=== PATIENT | female | born 1970 | race Caucasian/White ===

== ENCOUNTER 2016-11-18 23:27 | Day surgery (SDC) | payer OTHER ==
[2016-11-19] MEDS ORDERED: Ondansetron INJ* 2 MG/ML VIAL IV ONE (00:19)
[2016-11-19] MEDS ORDERED: NS 0.9% 1000 ML* 3,000 ML IV ONE (00:19)
[2016-11-19] MEDS ORDERED: Morphine INJ* 4 MG/ML 1 ML CARPUJECT IV ONE (00:19)
[2016-11-19] MEDS ORDERED: HYDROmorphone INJ* 1 MG/ML CARPUJECT SYRINGE IV ONE (00:43)
[2016-11-19 00:55] LABS: Hematocrit 42 % (35-47); Hemoglobin 14.3 g/dl (12.0-16.0); Mean Corpuscular HGB Conc 34 g/dl (31-36); Mean Corpuscular Hemoglobin 30 pg (27-31); Mean Corpuscular Volume 88 fL (80-97); Mean Platelet Volume 6 um3 (7.4-10.4); Red Blood Count 4.75 10^6/ul (4.0-5.4); Red Cell Distribution Width 13 % (10.5-15); White Blood Count 12.9 10^3/ul (3.5-10.8)
[2016-11-19 00:58] LABS: Urine Bilirubin Negative (Negative); Urine Glucose Negative (Negative); Urine Nitrite Negative (Negative)
[2016-11-19 01:08] LABS: ALT 31 U/L (7-52); AST 30 U/L (13-39); Albumin 4.3 g/dL (3.2-5.2); Alkaline Phosphatase 76 U/L (34-104); Anion Gap 9 mmol/L (2-11); BUN/Creatinine Ratio 15.6 (8-20); Blood Urea Nitrogen 12 mg/dL (6-24); C Reactive Protein 3.93 mg/L (< 5.00); CO2 Carbon Dioxide 25 mmol/L (22-32); Calcium 9.7 mg/dL (8.6-10.3); Chloride 100 mmol/L (101-111); EGFR African American 103.8 (>60); EGFR Non-African American 80.7 (>60); Glucose 118 mg/dL (70-100); Lipase 23 U/L (11.0-82.0); Potassium 3.4 mmol/L (3.5-5.0); Sodium 134 mmol/L (133-145); Total Protein 7.3 g/dL (6.4-8.9)
[2016-11-19] MEDS ORDERED: Iohexol 300* (CONTRAST) 10 ML SDV IV ONE (01:27)
[2016-11-19] MEDS ORDERED: NS 0.9% 1000 ML* 1,000 ML IV ONE (04:16)
--- NOTE | 2016-11-19 04:17 | ED ---
Ray Huber Adam, scribed for Juan Antonio Hernandez MD on 11/19/16 at 0024 . Abdominal Pain/Female - HPI Summary HPI Summary: Pt is a 46 year old female presenting with abdominal pain that set on at 17:00 and has been growing worse. It is located diffusely around the umbilicus and it has been sharp and constant. Pt also c/o vomiting. She denies chills. No Hx of abdominal surgeries. - History of Current Complaint Chief Complaint: EDAbdPain Stated Complaint: ABD PAIN Time Seen by Provider: 11/19/16 00:00 Hx Obtained From: Patient Hx Last Menstrual Period: 05/12/14 Onset/Duration: Sudden Onset, Lasting Hours, Still Present Timing: Constant Severity Initially: Mild Severity Currently: Moderate Pain Intensity: 8 Pain Scale Used: 0-10 Numeric Location: Diffuse, Umbilical Radiates: No Character: Sharp Aggravating Factor(s): Nothing Alleviating Factor(s): Nothing Associated Signs and Symptoms: Positive: Vomiting Allergies/Adverse Reactions: Allergies Allergy/AdvReac Type Severity Reaction Status Date / Time Penicillins Allergy Hives Verified 06/13/15 11:40 zpack Allergy Hives Uncoded 06/13/15 11:40 PMH/Surg Hx/FS Hx/Imm Hx - Cancer History Hx Chemotherapy: No Hx Radiation Therapy: No Infectious Disease History: No Infectious Disease History: Denies: Traveled Outside the [place] in Last 30 Days - Family History Known Family History: Positive: Other - Negative breast cancer - Social History Occupation: Employed Full-time Lives: Alone Alcohol Use: Weekly Alcohol Amount: 3 x a week Hx Substance Use: No Substance Use Type: Reports: None Hx Tobacco Use: No Smoking Status (MU): Never Smoked Tobacco Have You Smoked in the Last Year: No Review of Systems Negative: Chills Positive: Abdominal Pain, Vomiting All Other Systems Reviewed And Are Negative: Yes Physical Exam Triage Information Reviewed: Yes Vital Signs On Initial Exam: Initial Vitals Temp Pulse Resp BP Pulse Ox 97.5 F 68 16 145/93 99 11/18/16 23:35 11/18/16 23:35 11/18/16 23:35 11/18/16 23:35 11/18/16 23:35 Vital Signs Reviewed: Yes Appearance: Positive: Pain Distress - Mild Skin: Positive: Warm, Skin Color Reflects Adequate Perfusion, Dry Head/Face: Positive: Normal Head/Face Inspection Eyes: Positive: EOMI, NASRIN ENT: Positive: Other - Dry oral mucosa Neck: Positive: Supple, Nontender Respiratory/Lung Sounds: Positive: Clear to Auscultation, Breath Sounds Present Cardiovascular: Positive: RRR Abdomen Description: Positive: Other: - Periumbilical tenderness. Mild tenderness in the epigastrium and RLQ Bowel Sounds: Positive: Hypoactive Musculoskeletal: Positive: Normal, Strength/ROM Intact Neurological: Positive: Normal, Sensory/Motor Intact, Alert, Oriented to Person Place, Time Psychiatric: Positive: Affect/Mood Appropriate Diagnostics - Vital Signs Vital Signs Temp Pulse Resp BP Pulse Ox 11/18/16 23:35 97.5 F 68 16 145/93 99 - Laboratory Lab Results: Lab Results 11/19/16 11/19/16 11/19/16 Range/Units 00:34 00:34 00:34 WBC 12.9 H (3.5-10.8) 10^3/ul RBC 4.75 (4.0-5.4) 10^6/ul Hgb 14.3 (12.0-16.0) g/dl Hct 42 (35-47) % MCV 88 (80-97) fL MCH 30 (27-31) pg MCHC 34 (31-36) g/dl RDW 13 (10.5-15) % Plt Count 272 (150-450) 10^3/ul MPV 6 L (7.4-10.4) um3 Neut % (Auto) 80.1 (38-83) % Lymph % (Auto) 12.0 L (25-47) % Meade % (Auto) 6.2 (1-9) % Eos % (Auto) 1.2 (0-6) % Baso % (Auto) 0.5 (0-2) % Absolute Neuts (auto) 10.3 H (1.5-7.7) 10^3/ul Absolute Lymphs (auto) 1.6 (1.0-4.8) 10^3/ul Absolute Monos (auto) 0.8 (0-0.8) 10^3/ul Absolute Eos (auto) 0.2 (0-0.6) 10^3/ul Absolute Basos (auto) 0.1 (0-0.2) 10^3/ul Absolute Nucleated RBC 0.01 10^3/ul Nucleated RBC % 0 INR (Anticoag Therapy) 0.94 (0.89-1.11) APTT 29.2 (26.0-36.3) seconds Sodium 134 (133-145) mmol/L Potassium 3.4 L (3.5-5.0) mmol/L Chloride 100 L (101-111) mmol/L Carbon Dioxide 25 (22-32) mmol/L Anion Gap 9 (2-11) mmol/L BUN 12 (6-24) mg/dL Creatinine 0.77 (0.51-0.95) mg/dL Est GFR ( Amer) 103.8 (>60) Est GFR (Non-Af Amer) 80.7 (>60) BUN/Creatinine Ratio 15.6 (8-20) Glucose 118 H (70-100) mg/dL Lactic Acid (0.5-2.0) mmol/L Calcium 9.7 (8.6-10.3) mg/dL Total Bilirubin 0.70 (0.2-1.0) mg/dL AST 30 (13-39) U/L ALT 31 (7-52) U/L Alkaline Phosphatase 76 (34-104) U/L C-Reactive Protein 3.93 (< 5.00) mg/L Total Protein 7.3 (6.4-8.9) g/dL Albumin 4.3 (3.2-5.2) g/dL Globulin 3.0 (2-4) g/dL Albumin/Globulin Ratio 1.4 (1-3) Lipase 23 (11.0-82.0) U/L Beta HCG, Quant < 0.60 mIU/mL Urine Color Urine Appearance Urine pH (5-9) Ur Specific [place] (1.010-1.030) Urine Protein (Negative) Urine Ketones (Negative) Urine Blood (Negative) Urine Nitrate (Negative) Urine Bilirubin (Negative) Urine Urobilinogen (Negative) Ur Leukocyte Esterase (Negative) Urine Glucose (Negative) 11/19/16 11/19/16 Range/Units 00:34 00:40 WBC (3.5-10.8) 10^3/ul RBC (4.0-5.4) 10^6/ul Hgb (12.0-16.0) g/dl Hct (35-47) % MCV (80-97) fL MCH (27-31) pg MCHC (31-36) g/dl RDW (10.5-15) % Plt Count (150-450) 10^3/ul MPV (7.4-10.4) um3 Neut % (Auto) (38-83) % Lymph % (Auto) (25-47) % Meade % (Auto) (1-9) % Eos % (Auto) (0-6) % Baso % (Auto) (0-2) % Absolute Neuts (auto) (1.5-7.7) 10^3/ul Absolute Lymphs (auto) (1.0-4.8) 10^3/ul Absolute Monos (auto) (0-0.8) 10^3/ul Absolute Eos (auto) (0-0.6) 10^3/ul Absolute Basos (auto) (0-0.2) 10^3/ul Absolute Nucleated RBC 10^3/ul Nucleated RBC % INR (Anticoag Therapy) (0.89-1.11) APTT (26.0-36.3) seconds Sodium (133-145) mmol/L Potassium (3.5-5.0) mmol/L Chloride (101-111) mmol/L Carbon Dioxide (22-32) mmol/L Anion Gap (2-11) mmol/L BUN (6-24) mg/dL Creatinine (0.51-0.95) mg/dL Est GFR ( Amer) (>60) Est GFR (Non-Af Amer) (>60) BUN/Creatinine Ratio (8-20) Glucose (70-100) mg/dL Lactic Acid 1.4 (0.5-2.0) mmol/L Calcium (8.6-10.3) mg/dL Total Bilirubin (0.2-1.0) mg/dL AST (13-39) U/L ALT (7-52) U/L Alkaline Phosphatase (34-104) U/L C-Reactive Protein (< 5.00) mg/L Total Protein (6.4-8.9) g/dL Albumin (3.2-5.2) g/dL Globulin (2-4) g/dL Albumin/Globulin Ratio (1-3) Lipase (11.0-82.0) U/L Beta HCG, Quant mIU/mL Urine Color Yellow Urine Appearance Clear Urine pH 6.0 (5-9) Ur Specific [place] 1.016 (1.010-1.030) Urine Protein Negative (Negative) Urine Ketones 1+ H (Negative) Urine Blood Negative (Negative) Urine Nitrate Negative (Negative) Urine Bilirubin Negative (Negative) Urine Urobilinogen Negative (Negative) Ur Leukocyte Esterase Negative (Negative) Urine Glucose Negative (Negative) Result Diagrams: 11/19/16 00:34 11/19/16 00:34 Lab Statement: Any lab studies that have been ordered have been reviewed, and results considered in the medical decision making process. - CT A/P CT Interpretation Completed By: Radiologist - IMPRESSION: SLIGHT APPARENT THICKENING OF THE TERMINAL ILEUM MAY BE DUE TO SUBOPTIMAL DISTENTION. THERE IS BORDERLINE PROMINENCE OF THE DISTAL APPENDIX WITH SLIGHT MURAL THICKENING AND HAZY INFILTRATION OF THE MESOAPPENDIX. EARLY APPENDICITIS CAN HAVE THIS APPEARANCE. THE DISTAL TIP OF THE APPENDIX ABUTS THE PERITONEUM IN THE RIGHT LOWER QUADRANT. CORRELATE FOR PERITONEAL SIGNS. Abdominal Pain Fem Course/Dx - Course Course Of Treatment: SURGERY WILL EVAL PATIENT IN ED. DISPOSITION PENDING AT SHIFT CHANGE. - Diagnoses Provider Diagnoses: Abdominal pain - Provider Notifications Discussed Care Of Patient With: Dr. Cameron who said that Surgery will see the patient. Discharge - Discharge Plan Condition: Stable Disposition: ADMITTED TO [facility] Referrals: Kofi Olmos MD [Primary Care Provider] - The documentation as recorded by the Ray amor Adam accurately reflects the service I personally performed and the decisions made by me, Juan Antonio Hernandez MD.
[2016-11-19] MEDS ORDERED: NS 0.9% 1000 ML* 1,000 ML IV SCH (04:30)
[2016-11-19] MEDS: HYDROmorphone INJ* 1 MG/ML CARPUJECT SYRINGE IV ONE ×4 (04:31→06:51)
--- NOTE | 2016-11-19 08:19 | RAD ---
INDICATION: Mid abdominal pain and vomiting. COMPARISON: Correlation is made with prior mammograms from July 04, 2016 and a prior right breast ultrasound from June 08, 2015. TECHNIQUE: A CT scan of the abdomen and pelvis was performed with intravenous and without oral contrast following intravenous injection of 96 ml of Omnipaque 300 nonionic contrast. Contiguous axial sections were obtained from the lung bases through the symphysis pubis. Images were reconstructed in the coronal and sagittal planes. FINDINGS: There is mild dependent bilateral lower lobe subsegmental atelectasis. No pleural effusion is present. The liver and spleen are normal in size. The liver is decreased in attenuation consistent with fatty infiltration. In addition there is a more focal small area of decreased density in the medial segment of the left hepatic lobe most consistent with more focal fatty infiltration. No calcified gallstones are seen. The pancreas appears to be within normal limits. The kidneys and adrenal glands are normal in size. No hydronephrosis is seen. No significant focal renal abnormality is seen. The aorta is normal in caliber and demonstrates homogeneous contrast opacification. No significant enlarged retroperitoneal lymph nodes are seen. The stomach, small and large bowel appear nondistended. There is increased density in the proximal portion of the appendix. The appendix is distended measuring up to 1 cm in diameter. There is thickening of the appendiceal wall and stranding in the adjacent mesenteric fat most consistent with early acute appendicitis. There is no evidence for diverticulitis or colitis. The uterus is anteverted and normal in size. No free intraperitoneal air or fluid is seen. No significant focal osseous abnormality is seen. There is a 1.7 cm mass in the inferior portion of the right breast partially seen on this study. 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 The results of this exam were discussed with Dr. Alves. IMPRESSION: FINDINGS MOST CONSISTENT WITH ACUTE APPENDICITIS.
[2016-11-19] MEDS ORDERED: Bupivacaine 0.25% EPI 200,000* 30 ML SDV ONE (09:53)
[2016-11-19] MEDS ORDERED: Lidocaine 2% PF * 5 ML VIAL ONE (09:57)
[2016-11-19] MEDS ORDERED: Propofol* 10 MG/ML 20 ML BTL IV PUSH ONE (09:57)
[2016-11-19] MEDS ORDERED: Rocuronium* 10 MG/ML VIAL ONE (09:58)
[2016-11-19] MEDS ORDERED: fentaNYL* 50 MCG/ML 2 ML VIAL (100 MCG VIAL) ONE ×2 (09:58→11:33)
[2016-11-19] MEDS ORDERED: Clindamycin 900 MG IVPREMIX(* 900 MG/50 ML SDV IV ONE (10:00)
[2016-11-19] MEDS ORDERED: Glycopyrrolate IV* 0.2 MG/ML 1 ML VIAL ONE (10:55)
[2016-11-19] MEDS ORDERED: Neostigmine Methylsulfate* 2 MG/2 ML SYRINGE ONE (10:55)
[2016-11-19] MEDS ORDERED: Gentamicin ADULT (*) 300 MG in NS 0.9% 100 ML* 100 ML IVPB ONE (11:00)
--- NOTE | 2016-11-19 11:03 | SURGPN ---
Brief Operative Note - Surgery Procedures: Pre-OP Diagnoses: acute appendicitis Post-op Diagnosis: same Procedure: Laparoscopic appendectomy Surgeon: Joselyn Asst: none Anethesia: ART Sosa EBL: minimal IVF: crystalloid Specimen: appendix Drains: none
[2016-11-19] MEDS: fentaNYL* 50 MCG/ML 2 ML VIAL (100 MCG VIAL) IV PRN ×2 (11:34→12:17)
[2016-11-19] MEDS ORDERED: oxyCODONE/Acetamin 5/325 MG* TAB ONE (12:13)
[2016-11-19 13:29] VITALS: BP 129/89
--- NOTE | 2016-11-19 15:23 | HP ---
HISTORY AND PHYSICAL: DATE OF ADMISSION: 11/19/16 HISTORY OF PRESENT ILLNESS: The Surgical Team was contacted by the ER to evaluate Ms. Marcela Alvarez, a 46-year-old female, who presented with a 1-day history of abdominal pain to the emergency room last night late via ambulance. The patient describes being somewhat rundown with an upper respiratory issue for almost 2 weeks. She was started on antibiotics of which she took only 3 days. The patient started having significant abdominal pain approximately 6 p.m. last night. This worsened steadily until she asked her neighbor to take her to [facility]. When the patient found out the [facility] was closed, she called an ambulance. The patient had described pain as severe, worsening periumbilical pain that did not radiate, but later localized to the right side. It was accompanied with nausea and vomiting. Pain controlled with narcotics in the emergency room and with rest. The patient is not hungry, but is thirsty. She denies any previous similar symptoms. No change in bowel habits. Last bowel movement normal yesterday. No fevers or chills. PAST MEDICAL HISTORY: Anxiety and depression. PAST SURGICAL HISTORY: No previous abdominal surgeries. MEDICATIONS: Pristiq and multivitamins. ALLERGIES: She is allergic to PENICILLIN and AZITHROMYCIN. FAMILY HISTORY: No family history of ulcerative colitis or Crohn's disease. SOCIAL HISTORY: Does not smoke, drink, or do IV drugs. She works at [employer]. She is a single mother. Last menstrual period end of October. REVIEW OF SYSTEMS: A 10-point review of systems suggest no other pertinent positives and negatives other than those mentioned in the HPI. PHYSICAL EXAMINATION GENERAL: She has been afebrile. Alert and oriented x3, in no apparent distress. VITAL SIGNS: Stable. HEENT: Normocephalic, atraumatic. Sclerae anicteric. Mucous membranes are moist. NECK: No lymphadenopathy. LUNGS: Clear to auscultation bilaterally. ABDOMEN: Soft, nondistended. Tender in the right lower quadrant with tenderness to percussion but no rebound. No hernias or masses are noted. No CVA tenderness. EXTREMITIES: Within normal limits. No edema. RECTAL: Not performed. DIAGNOSTIC STUDIES/LABORATORY DATA: Labs reviewed showed an elevated white count of 13 with chemistry panel within normal limits including lipase. Urinalysis also reviewed. The patient underwent a CAT scan of the abdomen and pelvis. These images were also reported and reviewed. Dilated appendix and inflammatory changes in the right lower quadrant consistent with appendicitis was remarked on the overnight. Radiologic read that there was some terminal ileitis. I spoke with the radiologist this morning, feels that this is not significant and most likely secondary to appendiceal changes. IMPRESSION: Acute appendicitis. Differential diagnosis does include inflammatory bowel disease. PLAN: Plan is for laparoscopic appendectomy. I outlined the details of the procedure going over the risks and benefits and alternatives and the patient wishes to proceed. We spoke about the possible complications which include but not limited to bleeding, infection, intraabdominal injury, need for additional procedures, abscess formation, and hernia formation. The patient agreed and consent is signed. She will get preoperative antibiotics with the hope that we will get her home later today. CC: Dr. Kofi Olmos * [id number]/[facility] #: [id number] MTDD
--- NOTE | 2016-11-20 02:17 | OP ---
DATE OF OPERATION: 11/19/16 [facility] DATE OF : 70 SURGEON: Cale Alves MD [facility] CONSULTANT: None. ANESTHESIOLOGIST: Dr. Sosa. ANESTHESIA: General. PRE-OP DIAGNOSIS: Acute appendicitis. POST-OP DIAGNOSIS: Acute appendicitis. OPERATIVE PROCEDURE: Laparoscopic appendectomy. BLOOD LOSS: Minimal. FLUIDS: Minimal crystalloid fluid given. SPECIMEN: Appendix nonperforated. DESCRIPTION OF PROCEDURE: The patient was identified in the preoperative area, marked, brought to the OR, and placed in the operating table in supine position. Preoperative antibiotics were given. Sequential devices were placed on bilateral lower extremities. General anesthesia was induced. The patient's abdomen was prepped and draped in a standard surgical fashion. Time-out was performed. Folds of the umbilicus were elevated anteriorly and a Veress needle was inserted into the abdominal cavity which was then allowed to insufflate to a pressure 15 mmHg. The patient tolerated the insufflation well. The right upper quadrant incision was made. A 12 mm trocar was inserted. The laparoscope was placed, and there was no evidence of injury from the trocar insertion or from the Veress needle which was then removed. Additional two 5 mm trocar was then placed in the periumbilical area and the suprapubic area. Attention was turned towards the right lower quadrant, there was some scant free fluid that was noncloudy. Appendix was thickened and consistent with acute appendicitis. It was brought into the midline. Blunt and sharp dissection was utilized to free the terminal ileum off the appendiceal and mesentery. Once this was performed, we made a window at the base of the appendix through healthy tissue and a 45 mm figueroa NOEL stapling devices fired across this. Next, a 45 mm alvarado NOEL stapling device was fired across the mesoappendix and the appendix was placed in an endoscopic retrieval bag. Review of staple line showed no evidence of bleeding or enteric contents. A 4 x 8 gauze was then placed to drop some of the fluid that we had seen and removed. Table was repositioned back in neutral and the omentum was placed on top of the staple line. The appendix was then brought out through the right upper quadrant port site and the abdomen was allowed to collapse. All trocars removed under direct vision. There was no bleeding, and all three skin incisions were reapproximated with 4-0 Monocryl followed by Steri-Strips and sterile dressing. The patient tolerated the procedure well, was woken up in the ER and transferred to the PACU in stable condition. CC: Dr. Kofi Olmos; [facility]* [id number]/[facility] #: [id number] [facility] MEDICAL CENTERAlfonso
== END 2016-11-19 09:04 | disposition home or self-care (01) ==
LOC: ED 23:27 → OR 11-19 09:04
PROVIDERS: ATTEND Surgery
DX: K35.80 Unspecified acute appendicitis (principal)
CPT/HCPCS: 36415; 74177; 80053; 81003; 83605; 83690; 84702; 85025; 85610; 85730; 86140; 88304; 96374; 96375; 99284; A9270-GY; C1776; J1170; J1580; J2270; J2405; J2704; J3010; Q9967

== ENCOUNTER 2019-12-07 10:36 | Emergency (ER) | payer OTHER ==
[2019-12-07 10:52] VITALS: BP 155/103
--- NOTE | 2019-12-07 11:09 | UC ---
Abdominal Pain Female HPI - HPI Summary HPI Summary: PATIENT DEVELOPED LEFT LOWER QUADRANT ABDOMINAL PAIN THIS MORNING WHILE WALKING HER DOG. PAIN STARTED INCREASING SO SHE WENT INSIDE AND HAD A BM WHICH DID NOT BRING HER ANY RELIEF. PAIN IS NOW ACROSS HER ENTIRE LOWER ABDOMEN. HAD SOME MILD NAUSEA INITIALLY BUT NONE NOW. NO FEVER. NO BACK PAIN. DENIES URINARY SYMPTOMS. PT ARRIVES DOUBLED OVER DUE TO DISCOMFORT. - History of Current Complaint Chief Complaint: UCAbdominalPain Stated Complaint: SEVERE ABDOMINAL PAIN (LEFT) Time Seen by Provider: 12/07/19 10:49 Hx Obtained From: Patient, Family/Web Development Instructor - FRIEND Hx Last Menstrual Period: nov 20 Onset/Duration: Gradual Onset, Lasting Hours, Still Present Timing: Constant Severity Initially: Mild Severity Currently: Moderate Pain Intensity: 6 Pain Scale Used: 0-10 Numeric Location: Other - LOWER ABDOMEN Radiates: No Character: Sharp Aggravating Factor(s): Nothing Alleviating Factor(s): Nothing Associated Signs and Symptoms: Negative: Fever, Constipation, Urinary Symptoms, Vomiting, Diarrhea Allergies/Adverse Reactions: Allergies Allergy/AdvReac Type Severity Reaction Status Date / Time azithromycin Allergy Nausea And Verified 12/07/19 10:41 Vomiting Penicillins Allergy Hives Verified 12/07/19 10:41 Home Medications: Home Medications Vitamin D 5,000 units PO DAILY 05/18/14 [History Confirmed 11/19/16] Multiple Vitamins 1 tab PO DAILY 06/08/15 [History Confirmed 11/19/16] Pristiq 50 mg PO DAILY 06/08/15 [History Confirmed 11/19/16] Vitamin B Complex TAB* [B Complex-50*] 1 tab PO DAILY 12/07/19 [History Confirmed 12/07/19] PMH/Surg Hx/FS Hx/Imm Hx Previously Healthy: Yes - Surgical History Surgical History: Yes Surgery Procedure, Year, and Place: appy 2017 - Family History Known Family History: Positive: Other - Negative breast cancer - Social History Alcohol Use: Occasionally Alcohol Amount: 3 x a week Substance Use Type: None Smoking Status (MU): Never Smoked Tobacco Have You Smoked in the Last Year: No Review of Systems All Other Systems Reviewed And Are Negative: Yes Constitutional: Positive: Negative Respiratory: Positive: Negative Cardiovascular: Positive: Negative Gastrointestinal: Positive: Abdominal Pain, Nausea. Negative: Vomiting, Diarrhea Genitourinary: Positive: Negative Physical Exam Triage Information Reviewed: Yes Appearance: Well-Nourished, Pain Distress - SEVERE Vital Signs: Initial Vital Signs Temp 97.1 F 12/07/19 10:44 Pulse 65 12/07/19 10:44 Resp 20 12/07/19 10:44 BP 155/103 12/07/19 10:44 Pulse Ox 100 12/07/19 10:44 Vital Signs Reviewed: Yes Eyes: Positive: Conjunctiva Clear ENT: Positive: Hearing grossly normal Neck: Positive: Supple Respiratory Exam: Normal Cardiovascular Exam: Normal Abdomen Description: Positive: Soft, Other: - TTP LOWER ABDOMEN. NO REBOUND OR RIGIDITY. Negative: CVA Tenderness (R), CVA Tenderness (L), Distended, Guarding Bowel Sounds: Positive: Present Musculoskeletal: Positive: No Edema Neurological: Positive: Alert Psychological: Positive: Age Appropriate Behavior Skin: Negative: Rashes Abd Pain Female Course/Dx - Course Course Of Treatment: PATIENT ARRIVES DOUBLED OVER IN SEVERE DISCOMFORT DUE TO LOWER ABDOMINAL PAIN THAT STARTED THIS MORNING. PATIENT REQUIRES A HIGHER LEVEL OF SERVICE THAN WHAT IS AVAILABLE IN THE URGENT CARE. [facility] ER BY PRIVATE CAR. PT OFFERED TRANSPORT TO THE ER BY AMBULANCE BUT DECLINES. ADVISED THAT BY NOT TRAVELING IN A MONITORED SETTING SHE COULD BE RISKING WORSENING OF HER CONDITION THAT COULD POSE A THREAT TO HER LIFE, HEALTH AND MEDICAL SAFETY. SHE VERBALIZES UNDERSTANDING AND CONTINUES TO DECLINE AMBULANCE TRANSFER. - Differential Dx/Diagnosis Provider Diagnosis: Lower abdominal pain Discharge ED - Sign-Out/Discharge Documenting (check all that apply): Patient Departure All imaging exams completed and their final reports reviewed: No Studies - Discharge Plan Condition: Fair Disposition: TRANS HIGHER LVL OF CARE FAC Patient Education Materials: Abdominal Pain (ED) Referrals: Kofi Olmos MD [Primary Care Provider] - If Needed Additional Instructions: GO DIRECTLY TO THE [facility] ER FROM HERE FOR FURTHER EVALUATION. YOU HAVE DECLINED TRANSFER TO THE ER BY AMBULANCE. BE ADVISED THAT BY NOT TRAVELING IN A MONITORED SETTING YOU COULD BE RISKING WORSENING OF YOUR CONDITION THAT COULD POSE A THREAT TO YOUR LIFE, HEALTH AND MEDICAL SAFETY. - Billing Disposition and Condition Condition: FAIR Disposition: Trans Higher Lvl of Care Fac
== END 2019-12-07 11:17 | disposition short-term general hospital (02) ==
LOC: UCEAST 10:36
DX: R10.32 Left lower quadrant pain (principal); R11.0 Nausea; Z88.0 Allergy status to penicillin; Z88.1 Allergy status to other antibiotic agents
CPT/HCPCS: 99212; G0463

== ENCOUNTER 2019-12-07 11:25 | Emergency (ER) | payer OTHER ==
[2019-12-07 12:55] LABS: ABS Basophils 0.1 10^3/ul (0-0.2); ABS Eosinophils 0.4 10^3/ul (0-0.6); ABS Lymphocytes 1.4 10^3/ul (1.0-4.8); ABS Monocytes 0.6 10^3/ul (0-0.8); ABS Neutrophils 4.8 10^3/ul (1.5-7.7); Hematocrit 37 % (35-47); Hemoglobin 12.7 g/dL (12.0-16.0); Lymphocyte % 19.2 %; Mean Corpuscular HGB Conc 34 g/dL (31-36); Mean Corpuscular Hemoglobin 31 pg (27-31); Mean Corpuscular Volume 92 fL (80-97); Platelet Count 296 10^3/uL (150-450); Red Blood Count 4.04 10^6 /uL (3.70-4.87); Red Cell Distribution Width 13 % (10-15); White Blood Count 7.3 10^3/uL (3.5-10.8)
[2019-12-07 13:17] LABS: Albumin 4.4 g/dL (3.2-5.2); Albumin/Globulin Ratio 1.6 (1-3); BUN/Creatinine Ratio 19.5 (8-20); Calcium 9.8 mg/dL (8.6-10.3); EGFR African American 96.4 (>60); EGFR Non-African American 79.7 (>60); Globulin 2.8 g/dL (2-4); Potassium 3.8 mmol/L (3.5-5.0); Total Bilirubin 0.5 mg/dL (0.2-1.0); Total Protein 7.2 g/dL (6.4-8.9)
[2019-12-07 13:21] LABS: HCG Pregnancy 2.7 mIU/mL
[2019-12-07 15:53] VITALS: BP 125/76
--- NOTE | 2019-12-07 16:40 | ED ---
Abdominal Pain/Female - HPI Summary HPI Summary: Patient is a 49-year-old female who presents emergency department for abdominal pain started earlier today. [facility] referred to the ER for lower abdominal pain. Denies past medical history. Surgical history of appendectomy. Patient states pain was 8 out of 10 but since being in the ER it has subsided and she is feeling much better. Patient denies vomiting, diarrhea, constipation, dysuria, flank pain, cough, fever. Symptoms are moderate in severity. No current modifying factors. - History of Current Complaint Chief Complaint: EDAbdPain Stated Complaint: ABDOMINAL PAIN PER PT Time Seen by Provider: 12/07/19 14:45 Hx Obtained From: Patient Hx Last Menstrual Period: nov 20 Pain Intensity: 0 Pain Scale Used: 0-10 Numeric Allergies/Adverse Reactions: Allergies Allergy/AdvReac Type Severity Reaction Status Date / Time Penicillins Allergy Hives Verified 12/07/19 11:40 Home Medications: Home Medications Cholecalciferol TAB* [Vitamin D TAB*] 5,000 unit PO DAILY #0 05/18/14 [History Confirmed 12/07/19] Desvenlafaxine (NF) [Pristiq (NF)] 50 mg PO DAILY 12/07/19 [History Confirmed ] Multivitamins/Minerals TAB* [Theragran/minerals TAB*] 1 tab PO DAILY 12/07/19 [ History Confirmed 12/07/19] Vitamin B Complex TAB* [B Complex-50*] 1 tab PO DAILY 12/07/19 [History Confirmed 12/07/19] PMH/Surg Hx/FS Hx/Imm Hx Previously Healthy: Yes Endocrine/Hematology History: Denies: Hx Diabetes Cardiovascular History: Denies: Hx Hypertension History: Reports: Hx Renal Disease - H/O as child, resolved - Cancer History Hx Chemotherapy: No Hx Radiation Therapy: No - Surgical History Surgery Procedure, Year, and Place: [id number] Infectious Disease History: No Infectious Disease History: Denies: Traveled Outside the [place] in Last 30 Days - Family History Known Family History: Positive: Other - Negative breast cancer, Non-Contributory - Social History Occupation: Employed Full-time Lives: With Family Alcohol Use: Occasionally Alcohol Amount: 3 x a week Hx Substance Use: No Substance Use Type: Reports: None Hx Tobacco Use: No Smoking Status (MU): Never Smoked Tobacco Have You Smoked in the Last Year: No Review of Systems Constitutional: Negative Cardiovascular: Negative Respiratory: Negative Positive: Abdominal Pain. Negative: Vomiting, Diarrhea, Nausea Genitourinary: Negative Negative: burning, dysuria, flank pain, hematuria Neurological/Mental Status: Negative All Other Systems Reviewed And Are Negative: Yes Physical Exam Triage Information Reviewed: Yes Vital Signs On Initial Exam: Initial Vitals Temp Pulse Resp BP Pulse Ox 98.9 F 71 20 136/91 100 12/07/19 11:35 12/07/19 11:35 12/07/19 11:35 12/07/19 11:35 12/07/19 11:35 Vital Signs Reviewed: Yes Appearance: Positive: Well-Appearing - Pt. lying in bed in NAD. Pleasant. Skin: Positive: Warm, Dry Head/Face: Positive: Normal Head/Face Inspection Eyes: Positive: Normal, EOMI Neck: Positive: Supple Respiratory/Lung Sounds: Positive: Clear to Auscultation, Breath Sounds Present Cardiovascular: Positive: Normal, RRR Abdomen Description: Positive: Nontender, Soft. Negative: CVA Tenderness (R), CVA Tenderness (L), Distended, Guarding Neurological: Positive: Normal, CN Intact II-III Psychiatric: Positive: Affect/Mood Appropriate Procedures - Sedation Patient Received Moderate/Deep Sedation with Procedure: No Diagnostics - Vital Signs Vital Signs Temp Pulse Resp BP Pulse Ox 12/07/19 15:51 98.4 F 69 16 125/76 98 12/07/19 11:35 98.9 F 71 20 136/91 100 - Laboratory Lab Results: Lab Results 12/07/19 12/07/19 Range/Units 12:42 12:42 WBC 7.3 (3.5-10.8) 10^3/uL RBC 4.04 (3.70-4.87) 10^6 /uL Hgb 12.7 (12.0-16.0) g/dL Hct 37 (35-47) % MCV 92 (80-97) fL MCH 31 (27-31) pg MCHC 34 (31-36) g/dL RDW 13 (10-15) % Plt Count 296 (150-450) 10^3/uL MPV 6.0 L (7.4-10.4) fL Neut % (Auto) 65.8 % Lymph % (Auto) 19.2 % [place] % (Auto) 7.9 % Eos % (Auto) 6.0 % Baso % (Auto) 1.1 % Absolute Neuts (auto) 4.8 (1.5-7.7) 10^3/ul Absolute Lymphs (auto) 1.4 (1.0-4.8) 10^3/ul Absolute Monos (auto) 0.6 (0-0.8) 10^3/ul Absolute Eos (auto) 0.4 (0-0.6) 10^3/ul Absolute Basos (auto) 0.1 (0-0.2) 10^3/ul Absolute Nucleated RBC 0.0 10^3/ul Nucleated RBC % 0.0 Sodium 139 (135-145) mmol/L Potassium 3.8 (3.5-5.0) mmol/L Chloride 105 (101-111) mmol/L Carbon Dioxide 27 (22-32) mmol/L Anion Gap 7 (2-11) mmol/L BUN 15 (6-24) mg/dL Creatinine 0.77 (0.51-0.95) mg/dL Est GFR ( Amer) 96.4 (>60) Est GFR (Non-Af Amer) 79.7 (>60) BUN/Creatinine Ratio 19.5 (8-20) Glucose 92 (70-100) mg/dL Calcium 9.8 (8.6-10.3) mg/dL Total Bilirubin 0.50 (0.2-1.0) mg/dL AST 21 (13-39) U/L ALT 19 (7-52) U/L Alkaline Phosphatase 62 (34-104) U/L Total Protein 7.2 (6.4-8.9) g/dL Albumin 4.4 (3.2-5.2) g/dL Globulin 2.8 (2-4) g/dL Albumin/Globulin Ratio 1.6 (1-3) Lipase 25 (11.0-82.0) U/L Beta HCG, Quant 2.70 mIU/mL Result Diagrams: 12/07/19 12:42 12/07/19 12:42 Lab Statement: Any lab studies that have been ordered have been reviewed, and results considered in the medical decision making process. Abdominal Pain Fem Course/Dx - Course Course Of Treatment: Patient presenting with abdominal pain that has improved. She is afebrile. She had blood work and ultrasound performed in triage which were unremarkable. Abd. is soft and nontender on exam. Offered further workup but patient is comfortable being discharged home and will follow-up with family doctor. Patient will return if symptoms return. - Diagnoses Differential Diagnosis: Positive: Bowel Obstruction, Constipation, Diverticulitis, Renal Colic, Urinary Tract Infection Provider Diagnoses: Abdominal pain Discharge ED - Sign-Out/Discharge Documenting (check all that apply): Patient Departure - Discharge Plan Condition: Improved Disposition: HOME Patient Education Materials: Acute Abdominal Pain (ED) Referrals: Kofi Olmos MD [Primary Care Provider] - Additional Instructions: Schedule a follow up appointment with your PCP Return to ER if pain returns, vomiting, fever, or if concerned - Billing Disposition and Condition Condition: IMPROVED Disposition: Home
== END 2019-12-07 15:51 | disposition home or self-care (01) ==
LOC: ED 11:25
DX: R10.30 Lower abdominal pain, unspecified (principal); R10.11 Right upper quadrant pain; K82.0 Obstruction of gallbladder; Z90.89 Acquired absence of other organs; Z88.0 Allergy status to penicillin
CPT/HCPCS: 36415; 76705; 80053; 83690; 84702; 85025; 99282